=== PATIENT | male | born 1950 | race Caucasian/White ===

== ENCOUNTER 2023-05-04 19:26 | Emergency (ER) | payer OTHER, SELFPAY ==
[2023-05-04] VITALS (23 sets, daily range): BP systolic 119–153; BP diastolic 70–98; BMI 27.0
--- NOTE | 2023-05-04 20:43 | ED.GENMED ---
History of Present Illness
General
Chief Complaint: Extremity Pain (non-traumatic)
Source: patient and spouse
Exam Limitations: none
Time Seen by Provider: 05/04/23 19:38
Nursing documentation reviewed up to this point in time: agreed with
Travel History
Have you had any contact with someone who has COVID-19?: No
Do you have any symptoms of coronavirus? Fever > 100 degrees, chills, cough, shortness of breath, sore throat, loss of taste or smell, muscle aches, or headache?: No
History of Present Illness
History of Present Illness:
72-year-old male with no chronic medical issues who presents to the emergency room for evaluation of a left shoulder injury. Patient reports that around 1 PM he was skiing and while he was trying to stop he turned on his skis and fell onto his left
shoulder and he believes dislocated it. He says he did not hit his head. He says he did not sustain any other injuries. He went to urgent care initially for assessment where he had an x-ray that showed a dislocation. Per urgent care physician
who called ahead, they attempted reduction at urgent care unsuccessfully the patient was sent in for reduction under sedation.
Review of Systems
Review of Systems
All Other Systems: ROS reviewed and negative except as documented in HPI and ROS
Respiratory: Denies trouble breathing
Cardiac: Denies chest pain
ABD/GI: Denies abdominal pain, nausea or vomiting
: Denies flank pain
Musculoskeletal: Reports joint pain (Left shoulder pain); Denies neck pain or back pain
Neurological: Denies headache, weakness or numbness
Phy Exam
Physical Exam
Physical Exam:
General: Awake, alert, oriented x3; no acute distress
Head: Normocephalic, atraumatic
Eyes: Conjunctiva normal, EOMI, pupils equal round reactive to light bilaterally
Throat: Airway intact, handling secretions
Neck: Trachea midline, no tenderness in the cervical spine and moves cervical spine through full range of motion without pain
Back: No signs of trauma the back or flank and no tenderness in thoracic lumbar spine
Lungs: Breathing comfortably no distress
Heart: Regular rate; no chest wall tenderness
Abd: Soft, non distended, nontender
Neuro: Cranial nerves grossly intact, speech fluid; motor and sensory function intact across radial, median, ulnar nerve distributions left upper extremity
Skin: no rash
Extremities: Patient has obvious dislocation of the left shoulder; unable to move shoulder through any range of motion on the left; he has no tenderness in the left upper arm, left elbow or wrist; he has a good strong left radial pulse and
neurologic function intact as above; rest of extremities are atraumatic and he is ambulatory with normal gait
Scores
Heart Failure Risk
Heart Failure Risk Score: Not Applicable
Heart Score for Chest Pain Patients
STEMI patient?: Not applicable
Withdrawal Assessment of Alcohol
Withdrawal Assessment Completed?: Not applicable
Course
Orders/Labs/Results
Orders:
Orders
05/04/23 19:32
Shoulder, Left, Trauma CR [CR Shoulder, Trauma - Left] Urgent
Comment:
Reason For Exam: pain
05/04/23 20:41
Propofol [Diprivan] 20 ml .ROUTE .STK-MED
05/04/23 21:13
Propofol [Diprivan] 20 ml .ROUTE .STK-MED
CR Shoulder - Left Min 2 View* Stat
Comment:
Reason For Exam: post reduction
05/04/23 21:19
CR Shoulder - Left Min 2 View* Stat
Comment:
Reason For Exam: post reduction
05/04/23 21:23
CR Shoulder - Left Min 2 View* Stat
Comment:
Reason For Exam: post reduction
Vital Signs
Initial and Last Documented VS:
Initial Vital Signs
Temp Pulse Resp BP Pulse Ox
37.4 C 77 16 136/87 97
05/04/23 19:28 05/04/23 19:28 05/04/23 19:28 05/04/23 19:28 05/04/23 19:28
Last Documented Vital Signs
Temp Pulse Resp BP Pulse Ox
37.4 C 77 16 136/87 97
05/04/23 19:28 05/04/23 19:28 05/04/23 19:28 05/04/23 19:28 05/04/23 19:28
Procedures
Moderate Sedation
ASA Risk Score: Class I
Chart and allergies reviewed: Yes
Consent for anesthesia obtained: Yes
Time out completed (validating right patient & procedure): Yes
History of difficult intubation: No
Airway free of obstruction: Yes
Patient has a gag reflex: Yes
Patient is able to open mouth: Yes
Patient has no dentures: Yes
Patient has no loose teeth: Yes
Medication administered by Provider during Moderate Sedation: IV Propofol (mg)
Total dose administered: 300
Time drug administered: 21:02
Start Time: 21:02
Stop Time: 21:30
Joint/Fracture Reduction
Left Shoulder:
Indication for procedure:: dislocation
Procedure completed by: Sim Bourne MD
Consent form signed: Yes
Anesthesia/sedation: Moderate sedation
Injury was: closed
Further treatement: no treatment needed
Post reduction exam: stable
Capillary Refill: normal
Normal distal neurovascular exam?: Yes
Peripheral Pulses: radial (left): 2+
MDM/Problems Addressed
Differential Diagnosis Includes:
Shoulder dislocation
MDM/Problems Addressed:
72-year-old male presents for evaluation of shoulder dislocation after minor fall while skiing today. No other injuries. Had an x-ray at urgent care�I reviewed this external x-ray personally and it shows anterior dislocation of left shoulder with
no clear fracture. Attempts at reduction without sedation in urgent care were unsuccessful and so he was directed to the emergency room. Spoke with patient about risk and benefits of procedure patient will undergo conscious sedation for reduction
of the left shoulder dislocation. Consent filed in medical record.
Shoulder reduced as documented in procedure note. Sling applied. Will monitor status post sedation and once awake plan for discharge with orthopedic referral.
*Radiology
Radiology exam reviewed: preliminary read by ED provider (Reviewed external x-ray from urgent care as above)
*Pulse Oximetry
Patient hypoxic: no
*Critical Care Note
Total Time (30-74mins, 75-104mins- exclusive of procedures): Not Applicable
Data Reviewed
Source: patient, spouse and physician (Urgent care physician)
ED Attending Note
-
Portions of this chart may have been created with voice recognition software.� Occasional wrong word or��sound alike� substitutions may have occurred due to the inherent limitations of voice recognition software.
Discharge Plan
Departure
Discharge Problem:
Dislocated shoulder
Instructions: Shoulder Dislocation (DC), MODERATE SEDATION ADULT
Prescriptions:
No Action
No Current Medications
0
Referrals:
Dale Ulloa MD [Active] - Call in 1-3 days for appt
Activity Restrictions/Additional Instructions:
Thank you for visiting the Emergency Department at [facility]
1. Please schedule a follow up appointment as directed. Call first thing tomorrow morning to make an appointment.
2. If indicated, please take your medications as instructed and indicated on discharge paperwork.
3. If any of your symptoms do not improve, or persist, or become more severe within 6-12 hours, please return to the emergency department for further care.
4. Please return to the emergency department if you develop a headache, neck pain/stiffness, fever greater than 100.4F, chest pain, shortness of breath, persistent nausea, vomiting, slurred speech, difficulty walking, numbness/tingling, weakness,
signs of infection or any other symptoms that are worrisome to you.
Please call [phone] if you have any questions.
Interventions
Interventions:
*Risk Screen - Suicide Last Done: 05/04/23 20:09
*General Assessment Last Done: 05/04/23 20:09
*Neglect/Abuse Screening Last Done: 05/04/23 19:28
*ED COVID-19 Vaccine History Last Done: 05/04/23 19:28
ED-Skin Assessment Last Done: 05/04/23 20:08
ED-Peripheral Vascular Assessment Last Done: 05/04/23 20:08
ED-Musculoskeletal Assessment Last Done: 05/04/23 20:08
== END 2023-05-04 22:48 | disposition home or self-care (01) ==
LOC: EMR 19:26
PROVIDERS: EMERGENCY PHYSICIAN Emergency Medicine; FAMILY PHYSICIAN Family Medicine
DX: S43.015A Anterior dislocation of left humerus, initial encounter (principal); V00.321A Fall from snow-skis, initial encounter
CPT/HCPCS: 99285; 99152; 99153; 73030